=== PATIENT | male | born 1955 | race Caucasian/White ===

== ENCOUNTER → 2017-10-30 | Outpatient (CLI) | payer OTHER ==
[~2017-10-30] MED LIST: ASPI325 PO; Bactrim Ds Tab1 EACH PO; CHOL10002 PO; CLON.5 PO; CLOP75 PO; CYAN1000 PO; CYCL10 PO; Cleocin HCl300 MG PO; FENO145 PO; FISH1000 PO; HYDCHL25 PO; INS70/30PN SC; INSULANPEN SC; LEVFLO500 PO; LISI20 PO; METF500 PO; METO50 PO; Prozac20 MG PO; SIMV10 PO
[2017-10-30 17:21] LABS: Source, Urine Clean Catch
[2017-10-30 19:11] LABS: Appearance, Urine Clear (Clear); Blood, Urine Neg (Neg); Color, Urine Yellow (P-Yellow); Glucose Qualitative, Urine 2+ (Neg); Ketones, Urine Neg (Neg); Leukocyte Esterase, Urine 1+ (Neg); Nitrite, Urine Neg (Neg); Protein, Urine 3+ (Neg); Urobilinogen, Urine 3+ (Normal)
[2017-10-30 19:45] LABS: Bilirubin, Urine 1+ (Neg)
[2017-10-30 19:46] LABS: Bacteria Few /hpf; Red Blood Cells, Urine 0-2 /hpf (0-2); Squamous Epithelial Cells Not Seen /hpf (Few)
== END | disposition home or self-care (01) ==
LOC: OLS 17:18
PROVIDERS: Internal Medicine
DX: N39.0 Urinary tract infection, site not specified (principal)
CPT/HCPCS: 81001; 87086